=== PATIENT | male | born 1980 | race Caucasian/White ===

== ENCOUNTER 2018-12-13 21:18 | Emergency (ER) | payer BC, OTHER ==
[~2018-12-13] VITALS: Ht 182.9 cm; Wt 129.3 kg
[2018-12-13] MEDS ORDERED: IBUP400 PO (22:58)
== END 2018-12-13 23:10 | disposition home or self-care (01) ==
LOC: ER 21:18
DX: M79.672 Pain in left foot (principal); Z91.018 Allergy to other foods
CPT/HCPCS: 73630; 99283-25

== ENCOUNTER 2019-09-12 11:27 | Emergency (ER) | payer OTHER ==
[~2019-09-12] VITALS: Ht 182.9 cm; Wt 136.1 kg
[~2019-09-12 11:27] MED LIST: IBUP400 PO
[2019-09-12] MEDS ORDERED: KEFLEX500 MG PO (11:55)
== END 2019-09-12 12:05 | disposition home or self-care (01) ==
LOC: ER 11:27
DX: S30.861A Insect bite (nonvenomous) of abdominal wall, initial encounter (principal); W57.XXXA Bitten or stung by nonvenomous insect and other nonvenomous arthropods, initial encounter; Z91.018 Allergy to other foods
CPT/HCPCS: 99282